=== PATIENT | female | born 1985 | race African-American/Black ===

== ENCOUNTER → 2019-04-28 | Outpatient (CLI) | payer BC ==
[2014-01-06 04:03] VITALS: BP 173/91
[~2019-04-28] MED LIST: METO-269 PO
--- NOTE | 2019-04-28 14:05 | KCIC ---
Bilateral diagnostic digital mammograms: Reason for examination: Left breast lump with tenderness. Baseline exam. Interpretation was made with the benefit of CAD. The skin and nipples show no abnormalities. No abnormal axillary lymph nodes are seen. The breast parenchyma is extremely dense. (Breast density: Category D.) There appears to be some more focally dense fibroglandular tissue in the upper outer quadrant of the left breast at the 2:00 C position which corresponds to the area of clinical concern. This can be further evaluated with ultrasound. There are no other dominant masses, suspicious calcifications or architectural distortion. Impression: Dense breasts with some asymmetric density at the 2:00 C position which corresponds to the area of clinical concern. Ultrasound to follow. Your patient's mammogram demonstrates that she has dense breast tissue (breast density category C or D), which could hide abnormalities, and if she has other risk factors for breast cancer that have been identified, she might benefit from supplemental screening tests that may be suggested by you as her ordering physician. Dense breast tissue, in and of itself, is a relatively common condition. Therefore, this information is not provided to cause undue concern, but rather to raise your awareness and to promote discussion with your patient regarding the presence of other risk factors, in addition to dense breast tissue. Your patient's mammography results will be sent to her. BI-RAD Category 0: Incomplete. Needs additional imaging evaluation. Left breast ultrasound: Left whole breast ultrasound including evaluation of all 4 quadrants and the retroareolar and axillary regions of the left breast was performed. In the area of clinical concern around the 2:00 position 10 cm from the nipple, there is dense fibroglandular tissue with some ductal ectasia. There are no discrete cystic or solid nodule seen in the breast. No abnormal appearing lymph nodes are seen in the axilla. IMPRESSION: Dense fibroglandular tissue in the area of clinical concern but no discrete nodules seen. Recommend clinical follow-up and routine mammograms at age 40. BI-RADS Category 2: Benign. "Our facility is accredited by the [employer] Mammography [employer]." This patient's information has been entered into a reminder system for the patient to be notified with the results of her examination and a target date for the next mammogram. Electronically signed by: Ghazala Gruber MD (04/28/2019 2:02 PM) [id number]
== END | disposition home or self-care (01) ==
LOC: KCIC MAMMO 12:40
PROVIDERS: ATTEND Obstetrics & Gynecology
DX: N60.42 Mammary duct ectasia of left breast (principal); N60.02 Solitary cyst of left breast
CPT/HCPCS: 76641; 77066